=== PATIENT | male | born 2000 | race Caucasian/White ===

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

== ENCOUNTER 2021-03-02 12:09 | Emergency (ER) | payer OTHER, BC ==
[2021-03-02] MEDS ORDERED: Ketorolac 15 MG/ML SDV IM ONE (13:25)
[2021-03-02] MEDS ORDERED: Dexamethasone 4 MG Tab PO ONE (13:25)
[2021-03-02] MEDS ORDERED: Penicillin G Benzathine 1,200,000 Units/2 ML Syringe IM ONE (13:40)
[2021-03-02] MEDS ORDERED: Dexamethasone 10 MG/ML SDV IM STA (13:41)
--- NOTE | 2021-03-02 13:45 | EDM.PDOC ---
ED HPI GENERAL MEDICAL PROBLEM - General Chief Complaint: ENT Problem Stated Complaint: SORE THROAT Time Seen by Provider: 03/02/21 13:16 - History of Present Illness INITIAL COMMENTS - FREE TEXT/NARRATIVE: CHIEF COMPLAINT(S): Sore throat HISTORY OF PRESENT ILLNESS: This is a 20-year-old man without any significant past medical history who comes to the emergency department with a chief complaint of sore throat. Patient states that for approximately 2 days now he has been experiencing a sore throat. He states it is painful when he tries to swallow and feels like he cannot breathe. He denies any drooling, inability to open his mouth, voice changes. He denies any fever or cough. He rates his pain as 10 out of 10 and sharp without any radiation. He denies any neck pain or stiffness. He states that he has not yet tried any pain medication and there are no exacerbating or relieving factors. He denies any other symptoms. REVIEW OF SYSTEMS: Constitutional: Denies fever, chills. Eyes: Denies eye pain Ears, Nose, Mouth, & Throat: Positive for sore throat. Denies trismus, drooling, stridor Cardiovascular: Denies chest pain Respiratory: Denies shortness of breath Gastrointestinal: Denies Nausea, vomiting, diarrhea, hematochezia. Genitourinary: Denies hematuria Skin:Denies a rash MSK: Denies joint pain Neurological: Denies blurred vision Psychiatric: Denies depression PAST MEDICAL HISTORY: As per history of present illness and as reviewed below otherwise noncontributory. SURGICAL HISTORY: As per history of present illness and as reviewed below otherwise noncontributory. SOCIAL HISTORY: As per history of present illness and as reviewed below otherwise noncontributory. FAMILY HISTORY: As per history of present illness and as reviewed below otherwise noncontributory. EXAMINATION OF ORGAN SYSTEMS/BODY AREAS: Constitutional: Blood pressure was 132/80, heart rate 79, respiratory rate 18 with an oxygen saturation of 100% on room air. Temperature 37.3 General: Well-appearing man who is sitting up in the stretcher without any significant distress Psychiatric: Appropriate mood and affect. Eyes: No scleral icterus or conjunctival erythema ENMT: Moist mucous membranes. No pharyngeal erythema bilateral tympanic membranes without any bulging or erythema. Bilateral tonsillar exudates and swelling. Uvula was midline. No stridor, drooling, trismus. There is mild tender anterior and posterior cervical lymphadenopathy Cardiovascular: Regular, rate, and rhythm. No gallops, murmurs, or rubs. Bilateral upper extremity pulses symmetric and intact. Respiratory: Lungs clear to auscultation bilaterally. No wheezes, rales, or rhonchi. Musculoskeletal: Normal range of motion. Skin: No lesions or abrasions. Neurological: Alert, GCS 15 MEDICAL DECISION MAKING AND COURSE IN THE ED WITH INTERPRETATION/REVIEW OF DIAGNOSTIC STUDIES: This is a 20-year-old and without any significant past medical history who comes to the emergency department with pharyngitis which is consistent with strep pharyngitis. At this time I do not believe any testing is indicated. We will provide the patient with Decadron p.o., IM Toradol, and IM penicillin. I did discuss strict return precautions with the patient. He was amenable to the plan and had no further questions DISPOSITION: The patient was discharged home in stable condition. The patient will follow up with primary care physician in 3 to 5 days CONDITION: Fair PROCEDURES: None FINAL IMPRESSION(S)/DIAGNOSES: 1. Acute pharyngitis likely strep pharyngitis [place] M.D. Throat Pain Score (Numeric/FACES): 10 - Related Data Allergies Allergy/AdvReac Type Severity Reaction Status Date / Time No Known Allergies Allergy Verified 03/02/21 13:17 Home Meds: Home Meds Ondansetron [Zofran ODT] 8 mg PO Q6H PRN #14 tab.dis 05/16/19 [Rx] Past Medical History - Past Health History Medical/Surgical History: Denies Medical/Surgical History HEENT History: Reports: None Cardiovascular History: Reports: None Gastrointestinal History: Reports: None Neurological History: Reports: None Hematologic History: Reports: None - Infectious Disease History Infectious Disease History: Reports: None - History Comment History Comment: Patient does not have any significant past surgical history Social & Family History - Family History Family Medical History: No Pertinent Family History - Tobacco Use Tobacco Use Status *Q: Current Every Day Tobacco User Years of Tobacco use: 14 Packs/Tins Daily: 0.5 - Caffeine Use Caffeine Use: Reports: None Other Caffeine Use: daily ED ROS GENERAL - Review of Systems Review Of Systems: See Below ED EXAM, GENERAL - Physical Exam Exam: See Below Course - Vital Signs Last Recorded V/S: Last Vital Signs Temp 37.3 C 03/02/21 13:15 Pulse 78 03/02/21 16:43 Resp 20 03/02/21 16:43 BP 102/75 03/02/21 16:43 Pulse Ox 99 03/02/21 16:43 - Orders/Labs/Meds Meds: Medications Discontinued Medications Generic Name Dose Route Start Last Admin Trade Name Cathie PRN Reason Stop Dose Admin Dexamethasone 8 mg 03/02/21 13:25 03/02/21 13:35 Dexamethasone 4 Mg Tab PO 03/02/21 13:26 8 mg ONETIME ONE Administration Dexamethasone 8 mg 03/02/21 13:41 03/02/21 13:58 Dexamethasone 10 Mg/Ml Sdv IM 03/02/21 13:42 8 mg ONETIME STA Administration Ketorolac Tromethamine 15 mg 03/02/21 13:25 03/02/21 13:35 Ketorolac 15 Mg/Ml Sdv IM 03/02/21 13:26 15 mg ONETIME ONE Administration Penicillin G Benzathine 1.2 millunits 03/02/21 13:40 03/02/21 13:57 Penicillin G Benzathine 1,200,000 Units/2 Ml Syringe IM 03/02/21 13:41 1.2 millunits ONETIME ONE Administration Departure - Departure Time of Disposition: 13:44 Disposition: Home, Self-Care 01 Condition: Fair Clinical Impression: Strep pharyngitis - Discharge Information *PRESCRIPTION DRUG MONITORING PROGRAM REVIEWED*: No *COPY OF PRESCRIPTION DRUG MONITORING REPORT IN PATIENT GEORGE: No Instructions: Strep Throat, Adult Referrals: PCP,None [Primary Care Provider] - Forms: ED Department Discharge Additional Instructions: You were evaluated today on an emergent basis. At this time I do believe you are experiencing strep pharyngitis or strep throat. I recommend that you use Tylenol and Motrin alternating as discussed below for pain relief. We did provide you with penicillin, Decadron, and Toradol here in the emergency department. If you have worsening of the swelling, drooling, neck pain or stiffness, worsening trouble swallowing or worsening trouble breathing I would like you to return to the emergency department. Otherwise follow-up with your primary care physician in 3 to 5 days. [facility] [address] [place] [address] [id number] [address] [id number] The patient is informed of any results of their evaluation and diagnostic workup and all questions are answered. They are given discharge instructions and return precautions. The patient is stable for discharge. The patient states they understand and agree with the plan and that they will return if their symptoms get worse or if they have any new concerns. The following information is given to patients seen in the emergency department who are being discharged to home. This information is to outline your options f or follow-up care. We provide all patients seen in our emergency department with a follow-up referral. The need for follow-up, as well as the timing and circumstances, are variable depending upon the specifics of your emergency department visit. If you don't have a primary care physician on staff, we will provide you with a referral. We always advise you to contact your personal physician following an emergency department visit to inform them of the circumstance of the visit and for follow-up with them and/or the need for any referrals to a consulting specialist. The emergency department will also refer you to a specialist when appropriate. This referral assures that you have the opportunity for follow-up care with a specialist. All of these measure are taken in an effort to provide you with optimal care, which includes your follow-up. Under all circumstances we always encourage you to contact your private physician who remains a resource for coordinating your care. When calling for follow-up care, please make the office aware that this follow-up is from your recent emergency room visit. If for any reason you are refused follow-up, please contact the [facility] Emergency Department at and asked to speak to the emergency department charge nurse. Sepsis Event Note (ED) - Evaluation Sepsis Screening Result: No Definite Risk
== END 2021-03-02 16:43 | disposition home or self-care (01) ==
LOC: MW.ED 12:09
DX: J02.0 Streptococcal pharyngitis (principal); Z72.0 Tobacco use
CPT/HCPCS: 96372; 99282; J0561; J1100; J1885; J8540

== ENCOUNTER 2021-10-15 17:07 | Emergency (ER) | payer OTHER, BC | END 2021-10-15 19:08 | disposition left against medical advice (07) | LOC: MW.ED 17:07 | DX: M54.50 Low back pain, unspecified (principal); Z53.21 Procedure and treatment not carried out due to patient leaving prior to being seen by health care provider ==

== ENCOUNTER 2022-02-13 00:54 | Emergency (ER) | payer BC, OTHER ==
[2022-02-13] MEDS ORDERED: Dexamethasone 10 MG/ML SDV IVPUSH ONE (01:41)
[2022-02-13] MEDS ORDERED: Sodium Chloride 0.9% 10 ML Syringe FLUSH PRN (01:41)
[2022-02-13] MEDS ORDERED: Sodium Chloride 0.9% 2.5 ML Syringe FLUSH PRN (01:41)
[2022-02-13] MEDS ORDERED: Ketorolac 30 MG/ML SDV IVPUSH ONE (01:41)
[2022-02-13] MEDS ORDERED: Sodium Chloride 0.9% 1,000 ML IV ONE (01:41)
[2022-02-13 02:27] LABS: CARBON DIOXIDE,CO2 26.4 mmol/L (21.0-32.0); POTASSIUM,K 3.8 mmol/L (3.5-5.1)
[2022-02-13] MEDS ORDERED: cefTRIAXone 1 GM in Sodium Chloride 0.9% 50 ML IV ONE (03:03)
[2022-02-13 03:30] LABS: CORONAVIRUS COVID-19 NAA NEGATIVE (NEGATIVE); INFLUENZA A NAA NEGATIVE (NEGATIVE); INFLUENZA B NAA NEGATIVE (NEGATIVE); RESPIRATORY SYNCYTIAL VIR NAA NEGATIVE (NEGATIVE)
== END 2022-02-13 04:21 | disposition home or self-care (01) ==
LOC: MW.ED 00:54
DX: J02.9 Acute pharyngitis, unspecified (principal); F17.210 Nicotine dependence, cigarettes, uncomplicated
CPT/HCPCS: 0241U; 36415; 80053; 85025; 86308; 87651; 96361; 96365; 96375; 99283; J0696; J1100; J1885; J3490; J7030; 99284

== ENCOUNTER 2022-04-09 15:43 | Emergency (ER) | payer BC ==
[2022-04-09] MEDS ORDERED: LORazepam 1 MG Tab PO ONE (17:37)
== END 2022-04-09 17:59 | disposition home or self-care (01) ==
LOC: MW.ED 15:43
DX: F11.23 Opioid dependence with withdrawal (principal)
CPT/HCPCS: 99283; A9270

== ENCOUNTER 2023-07-18 23:30 | Emergency (ER) | payer BC | END 2023-07-19 00:10 | disposition home or self-care (01) | LOC: MW.ED 23:30 | DX: M79.675 Pain in left toe(s) (principal); Z75.8 Other problems related to medical facilities and other health care; X50.1XXA Overexertion from prolonged static or awkward postures, initial encounter | CPT/HCPCS: 73660-26-TA; 73660-TA; 99282; 99283 ==